=== PATIENT | female | born 1985 | race African-American/Black ===

== ENCOUNTER 2016-08-05 06:05 | Emergency (ER) | payer SELFPAY ==
[2016-08-05 06:17] VITALS: BP 134/73; PULSE 98; RESP 18; TEMP 98.4; O2SAT 100
--- NOTE | 2016-08-05 06:25 | PD ---
HPI Chief Complaint: right ankle pain Time Seen by Provider: 06:16 Travel History International Travel<30 days: No Contact w/Intl Traveler<30days: No Traveled to known affect area: No History of Present Illness HPI 30-year-old black female presents to emergency department by EMS with complaints of right ankle pain. She states that the pain started approximately 5 hours earlier. She states it has been progressive in nature. Now it starting to affect her left ankle. She denies any injury. No recent illness. She never had any problems with this ankle in the past. She states the pain is sharp and throbbing. Severe in nature. No palliative activity. Pain is aggravated by palpation and movement. No sensory changes. PFSH Past Medical History Anxiety: Yes Cardiovascular Problems: No Diminished Hearing: No Gastrointestinal Disorders: No Genitourinary: Yes (PID) Musculoskeletal: No Neurologic: No Reproductive: Yes (PID) Respiratory: No Migraines: Yes Tetanus Vaccination: Unknown ?: Not : 6 Para: 5 Tubal Ligation: Yes Past Surgical History Abdominal Surgery: Yes Section: Yes (5X) Gynecologic Surgery: Yes (C SECTION) Other Surgery: Yes (breast augmentation) Social History Alcohol Use: Yes (2 Beers per day) Tobacco Use: Yes (3 per day) Substance Use: Yes Allergies-Medications (Allergen,Severity, Reaction): Coded Allergies: No Known Allergies (Unverified , 08/05/16) Reported Meds & Prescriptions Reported Meds & Active Scripts Active Lortab (Hydrocodone-Acetaminophen) 5-325 Mg Tab 1 Tab PO Q8HR PRN Indomethacin 50 Mg Cap 50 Mg PO TID Take with food, milk, or antacids to decrease stomach adverse effects. Review of Systems Except as stated in HPI: all other systems reviewed are Neg Physical Exam Narrative GENERAL: This is a well-nourished, well-developed patient, in no apparent distress. SKIN: No rashes, ecchymoses or lesions. Warm and dry. HEAD: Atraumatic. Normocephalic. EYES: PERRL, EOMI, no discharge or injection. No scleral icterus. EARS: Clear NOSE: Nasal turbinates appear normal. THROAT: Mucosa pink and moist. Airway patent. NECK: Trachea midline. supple, moves head freely. LUNGS: Clear to auscultation. CV: Regular in rhythm. ABDOMEN: Soft nontender. EXT: Examination of her right lower extremity reveals pain and swelling to the ankle. It is globally tender and swollen. Mildly warm. No erythema. The skin is intact. No pain in the toes, forefoot. No pain in the or hip. The left lower show me now she complains of pain but is mild. She has intact sensation with good distal pulses. There is no erythema or warmth in the left foot. No pain in the toes or forefoot. No pain in the near hip. The upper extremities are unremarkable. Data Data Last Documented VS Vital Signs Date Time Temp Pulse Resp B/P Pulse Ox O2 Delivery O2 Flow Rate FiO2 08/05/16 06:17 98.4 98 18 134/73 100 Orders Ketorolac Inj (Toradol Inj) (08/05/16 06:30) Dexamethasone Inj (Decadron Inj) (08/05/16 06:30) Crutches (08/05/16 06:25) MDM Medical Decision Making Medical Screen Exam Complete: Yes Emergency Medical Condition: Yes Medical Record Reviewed: Yes Differential Diagnosis MDM: High Differential diagnoses: Fracture, sprain, strain, dislocation, contusion, neurovascular injury, inflammatory arthritis Narrative Course The patient denies any history of trauma. She states that she's never had problems of this nature in the past. She denies any history of hypertension. The patient appears to have a inflammatory arthritis in her right ankle. She' ll be given Toradol 60 mg IM and Decadron 10 mg IM. This is right ankle pain, inflammatory arthritis At time of discharge the patient now is brought up that she feels that she has a skin infection. She has areas of eschar radiation and picking to her face, arms and legs. This looks to be more of a formication. I've agreed to give her Bactrim. Diagnosis Primary Impression: Acute right ankle pain Additional Impressions: Inflammatory arthritis Psychogenic formication Additional Instructions: Rest. Elevation. Ice packs for the next 3 days. crutches. No weight-bearing and then progress to weight-bearing as tolerated. Medications as directed Follow-up with an orthopedist or your doctor in one week. Return to the ER if any problems Med/Other Pt SpecificInfo: Prescription(s) given Scripts Sulfamethoxazole-Trimethoprim (Bactrim DS)800-160 Mg Tab1 Tab PO BID #14 TAB Prov:Highet,Vale H. MD 08/05/16 Hydrocodone-Acetaminophen (Lortab)5-325 Mg Tab1 Tab PO Q8HR PRN (PAIN) #12 TAB Prov:Vale Rosas MD 08/05/16 Indomethacin 50 Mg Cap50 Mg PO TID #21 CAP Ref 0 Take with food, milk, or antacids to decrease stomach adverse effects. Prov:Vale Rosas MD 08/05/16 Disposition: 01 DISCHARGE HOME Condition: Stable Adrian Vasquez Aug 05, 2016 06:24
[2016-08-05] MEDS ORDERED: INDO50CA PO (06:26)
[2016-08-05] MEDS ORDERED: HYDR-3533 PO (06:26)
[2016-08-05] MEDS ORDERED: KETOROLAC TROMETHAMINE 60 MG/2 ML (IM) VIAL IM ONE (06:30)
[2016-08-05] MEDS ORDERED: DEXAMETHASONE SOD PHOS 20 MG/5 ML VIAL IM ONE (06:30)
[2016-08-05] MEDS ORDERED: BACT800T5 PO (06:58)
== END 2016-08-05 07:21 | disposition home or self-care (01) ==
LOC: NEPB 06:05
DX: M25.571 Pain in right ankle and joints of right foot (principal); M06.4 Inflammatory polyarthropathy; F45.9 Somatoform disorder, unspecified; Z72.0 Tobacco use
CPT/HCPCS: 96372; 99283; E0113; J1100; J1885